=== PATIENT | female | born 1985 | race Caucasian/White ===

== ENCOUNTER 2016-10-04 19:10 | Emergency (ER) | payer MEDICAID ==
[~2016-10-04] VITALS: Ht 172.7 cm; Wt 100.2 kg
[~2016-10-04 19:10] MED LIST: GLYBURIDE5 M1 PO; METFORMIN HCL500 MG PO
[2016-10-04 19:31] VITALS: BP 112/76
--- NOTE | 2016-10-04 21:01 | NUR ---
C/O PAIN ON LEFT SIDE OF MOUTH -ABSCESS X 1 MONTH WHERE WISDOM TOOTH IS CRACKED. THEN RT LOWER EYE LID ON SMALL GROWTH ON IT OF 3 DAYS AGO. MED HX: DIABETES
--- NOTE | 2016-10-04 21:01 | NUR ---
TO ER BED 6
[2016-10-04 22:14] VITALS: BP 114/79
--- NOTE | 2016-10-04 22:14 | NUR ---
Patient discharged with v/s stable. Written and verbal after care instructions given and explained. Patient alert, oriented and verbalized understanding of instructions. Ambulatory with steady gait. All questions addressed prior to discharge. ID band removed. Patient advised to follow up with PMD. Rx of BLEPH 10, AMOX 500MG, AND MOTRIN 800MG given. Patient educated on indication of medication including possible reaction and side effects. Opportunity to ask questions provided and answered.
== END 2016-10-04 22:14 | disposition home or self-care (01) ==
LOC: MED 19:10
DX: K04.7 Periapical abscess without sinus (principal); H00.012 Hordeolum externum right lower eyelid; E11.9 Type 2 diabetes mellitus without complications

== ENCOUNTER 2017-06-28 15:42 | Emergency (ER) | payer MEDICAID ==
[~2017-06-28] VITALS: Ht 170.2 cm; Wt 103.4 kg
[~2017-06-28 15:42] MED LIST changes: +GLYB5TAB14 PO; -GLYBURIDE5 M1 PO; +METF500T4 PO; -METFORMIN HCL500 MG PO
[2017-06-28 15:56] VITALS: BP 116/74
--- NOTE | 2017-06-28 16:52 | NUR ---
PATIENT PRESENTS TO ED WITH LEFT WRIST PAIN S/P FALL MONDAY, X3 DAYS AGO HX DM; DENIES N/V/D; SKIN IS PINK/WARM/DRY; AAOX4 WITH EVEN AND STEADY GAIT; LUNGS CLEAR BL; HR EVEN AND REGULAR; PT DENIES ANY FEVER, CP, SOB, OR COUGH AT THIS TIME; PATIENT STATES PAIN OF 6/10 AT THIS TIME; VSS; PATIENT POSITIONED FOR COMFORT; ER MD MADE AWARE OF PT STATUS.
[2017-06-28] MEDS ORDERED: IBUPROFEN 400 MG TAB PO ONE (18:10)
[2017-06-28 18:22] VITALS: BP 124/84
== END 2017-06-28 16:52 | disposition home or self-care (01) ==
LOC: MED 15:42
DX: S63.502A Unspecified sprain of left wrist, initial encounter (principal); E11.9 Type 2 diabetes mellitus without complications; W18.30XA Fall on same level, unspecified, initial encounter; Y93.89 Activity, other specified; Y92.89 Other specified places as the place of occurrence of the external cause; Y99.8 Other external cause status
CPT/HCPCS: 73110; 99284

== ENCOUNTER 2018-01-07 15:04 | Emergency (ER) | payer MEDICAID ==
[~2018-01-07] VITALS: Ht 167.6 cm; Wt 109.3 kg
[2018-01-07 15:30] VITALS: BP 100/70
[2018-01-07] MEDS ORDERED: traMADol 50 MG TAB PO ONE (16:30)
[2018-01-07] MEDS ORDERED: KETOROLAC 60 MG/2 ML VIAL IM ONE (16:30)
[2018-01-07 18:08] VITALS: BP 111/73
== END 2018-01-07 18:08 | disposition home or self-care (01) ==
LOC: MED 15:04
DX: S92.535A Nondisplaced fracture of distal phalanx of left lesser toe(s), initial encounter for closed fracture (principal); E11.9 Type 2 diabetes mellitus without complications; W18.30XA Fall on same level, unspecified, initial encounter; Y93.89 Activity, other specified; Y92.89 Other specified places as the place of occurrence of the external cause; Y99.8 Other external cause status
CPT/HCPCS: 73630; 81025; 96372; 99285; J1885; Q0092

== ENCOUNTER 2018-12-26 22:07 | Emergency (ER) | payer MEDICAID ==
[~2018-12-26] VITALS: Ht 170.2 cm; Wt 101.6 kg
[2018-12-26 22:12] VITALS: BP 123/84
--- NOTE | 2018-12-26 22:12 | NUR ---
TO BED # 12 AMBULATORY
--- NOTE | 2018-12-26 22:12 | NUR ---
32 Y/O FEMALE PRESENTS TO ED WITH C/O LEFT FOOT FIRST DIGIT TOE PAIN. 01/19. RED, EDEMA, THROBBING PAIN. STATES HAD A PEDICURE 8 DAYS AGO. TRIED TREATING INFECTION AT HOME WITH PEROXIDE OR SOAP AND WATER. TOE HAS NOT IMPROVED. PT STATATES UNABLE TO WEAR SHOES D/T PAIN. AFEBRILE WITH VSS. ER MD AWARE. CONTINUE TO MONITOR.
--- NOTE | 2018-12-26 23:04 | NUR ---
Dr. Amezcua examining patient.
[2018-12-26] MEDS ORDERED: HYDROcodone/APAP 5/325 MG 1 TAB TAB PO ONE (23:10)
[2018-12-26] MEDS ORDERED: BACITRACIN OINT 500 UNITS/GM PKT TP ONE (23:10)
[2018-12-26 23:35] VITALS: BP 123/84
--- NOTE | 2018-12-26 23:35 | NUR ---
Patient discharged with v/s stable. Written and verbal after care instructions given and explained. Patient alert, oriented and verbalized understanding of instructions. Ambulatory with steady gait. All questions addressed prior to discharge. ID band removed. Patient advised to follow up with PMD. Rx of NORCO, KEFLEX, AND NAPROSYN given. Patient educated on indication of medication including possible reaction and side effects. Opportunity to ask questions provided and answered.
== END 2018-12-26 23:35 | disposition home or self-care (01) ==
LOC: MED 22:07
DX: L03.032 Cellulitis of left toe (principal); E11.65 Type 2 diabetes mellitus with hyperglycemia; Z89.412 Acquired absence of left great toe
CPT/HCPCS: 82948; 99283

== ENCOUNTER 2018-12-30 03:18 | Emergency (ER) | payer MEDICAID ==
[~2018-12-30] VITALS: Ht 170.2 cm; Wt 98.0 kg
[2018-12-30 03:23] VITALS: BP 120/86
--- NOTE | 2018-12-30 03:45 | NUR ---
32 YO F BIB SELF PRESENTS TO ED C/O N/V X 2 HOURS. PT IS VOMITING AT BEDSIDE YELLOW FLUID. PT STATES "I THINK I HAVE ALCOHOL POISONING". PT ADMITS TO INGESTING 41 JELLO SHOTS MADE WITH VODKA. PT ALSO C/O 12/19 DIFFUSE ABDOMINAL PAIN. -- PT AWAKE, ALERT, INTOXICATED. SPEECH IS SLURRED. BEHAVIOR INAPPROPRIATE. -- SKIN PINK, WARM, DRY. BREATHING EVEN, UNLABORED. PMH-- DENIES RX-- DENIES
[2018-12-30] MEDS ORDERED: NACL 0.9% 1,000 ML IV ONE ×2 (03:50→05:05)
[2018-12-30] MEDS ORDERED: ONDANSETRON 4 MG/2 ML VIAL IVP ONE (04:00)
--- NOTE | 2018-12-30 04:15 | NUR ---
PROVIDED PT WITH URINE CUP FOR URINE. PT STATES SHE CANNOT URINATE AT THIS TIME. FLUIDS RUNNING.
[2018-12-30 04:28] LABS: BASOPHILS % (AUTO) 0.3 % (0.0-2.0); EOSINOPHILS % (AUTO) 0.2 % (0.0-4.0); HEMATOCRIT 43.9 % (36-48); HEMOGLOBIN 14.7 g/dL (12.0-16.0); LYMPHOCYTES # (AUTO) 1.3 K/uL (2.5-16.5); LYMPHOCYTES % (AUTO) 15.7 % (20.5-51.1); MEAN CORPUSCULAR HEMOGLOBIN 26 pg (27-31); MEAN CORPUSCULAR HGB CONC 34 g/dL (33-37); MEAN CORPUSCULAR VOLUME 77.1 fL (80-94); MONOCYTES # (AUTO) 0.3 K/uL (0.8-1.0); MONOCYTES % (AUTO) 3.7 % (1.7-9.3); NEUTROPHILS # (AUTO) 6.8 K/uL (1.8-7.7); NEUTROPHILS % (AUTO) 80.1 % (42.2-75.2); PLATELET COUNT (AUTO) 288 K/uL (140-450); RED BLOOD CELL COUNT(AUTO) 5.69 MIL/uL (4.20-5.40); WHITE BLOOD COUNT (AUTO) 8.4 K/uL (4.8-10.8)
[2018-12-30 04:46] LABS: ANION GAP 16.9 (8-16); CREATININE 0.6 mg/dL (0.6-1.3); POTASSIUM 3.9 mmol/L (3.5-5.1)
[2018-12-30 04:48] LABS: ALBUMIN 3.9 g/dL (3.4-5.0); TOTAL BILIRUBIN 1.1 mg/dL (0.0-1.0)
--- NOTE | 2018-12-30 05:00 | NUR ---
PT AWAKE, ALERT, RESTING. VSS. SKIN PINK, WARM, DRY. BREATHING EVEN, UNLABORED.
--- NOTE | 2018-12-30 05:18 | NUR ---
URINE SAMPLE COLLECTED.
[2018-12-30 05:42] LABS: APPEARANCE,URINE CLEAR (CLEAR); BILIRUBIN,URINE NEGATIVE (NEGATIVE); BLOOD, URINE NEGATIVE (NEGATIVE); COLOR,URINE YELLOW (YELLOW); LEUKOCYTE ESTERASE ,URINE NEGATIVE (NEGATIVE); NITRITE, URINE NEGATIVE (NEGATIVE); UGLUCOSE 3+ (NEGATIVE)
[2018-12-30 05:56] LABS: RBC,URINE 0-5 /HPF (0-5); YEAST,URINE Many /HPF (None Seen)
[2018-12-30] MEDS ORDERED: ALUMINUM HYD/MAG/SIMETHICONE 30 ML UDC PO ONE (06:15)
[2018-12-30] MEDS ORDERED: LIDOCAINE VISCOUS 2% 20 ML UDC PO ONE (06:15)
[2018-12-30] MEDS ORDERED: FAMOTIDINE 20 MG TAB PO ONE (06:15)
[2018-12-30] MEDS ORDERED: FLUCONAZOLE 100 MG TAB PO ONE (06:15)
--- NOTE | 2018-12-30 06:19 | NUR ---
DIFLUCAN AND MYLANTA NOT AVAILABLE IN [facility]. [employer] CALLED. AWAITING MEDICATION.
[2018-12-30] MEDS ORDERED: FLUCONAZOLE 100 MG TAB ONE (06:35)
[2018-12-30] MEDS ORDERED: ALUMINUM HYD/MAG/SIMETHICONE 30 ML UDC ONE (06:36)
[2018-12-30] MEDS ORDERED: KETOROLAC 15 MG/ML VIAL IVP ONE (06:45)
[2018-12-30] MEDS ORDERED: FAMOTIDINE 20 MG TAB PO SCH (07:00)
[2018-12-30] MEDS ORDERED: KETOROLAC 30 MG/ML VIAL IVP ONE (07:00)
[2018-12-30] MEDS ORDERED: ALUMINUM HYD/MAG/SIMETHICONE 30 ML UDC PO SCH (07:00)
[2018-12-30] MEDS ORDERED: FLUCONAZOLE 100 MG TAB PO SCH (07:00)
[2018-12-30] MEDS ORDERED: LIDOCAINE VISCOUS 2% 20 ML UDC PO SCH (07:00)
--- NOTE | 2018-12-30 07:00 | NUR ---
PT AWAKE, ALERT, TALKING ON THE PHONE. VSS. SKIN PINK, WARM, DRY. BREATHING EVEN, UNLABORED.
--- NOTE | 2018-12-30 07:05 | NUR ---
RECEIVED REPORT FROM [facility] FOR CONTINUATION OF CARE
[2018-12-30] MEDS ORDERED: KETOROLAC 30 MG/ML VIAL ONE (07:09)
--- NOTE | 2018-12-30 07:17 | NUR ---
REPORT GIVEN TO DANIEL Cavazos RN. TRANSFER OF CARE AT THIS TIME.
[2018-12-30 07:35] VITALS: BP 117/74
--- NOTE | 2018-12-30 07:38 | NUR ---
Patient discharged with v/s stable. Written and verbal after care instructions given and explained. Patient verbalized understanding. Ambulatory with steady gait. All questions addressed prior to discharge. Advised to follow up with PMD.
== END 2018-12-30 07:38 | disposition home or self-care (01) ==
LOC: MED 03:18
DX: K29.70 Gastritis, unspecified, without bleeding (principal); E11.9 Type 2 diabetes mellitus without complications
CPT/HCPCS: 36415; 80053; 81001; 81025; 82948; 83690; 85025; 87086; 96361; 96374; 96375; 99284; G0482; J1885; J2405; J7030

== ENCOUNTER 2019-02-22 18:48 | Emergency (ER) | payer MEDICAID, OTHER ==
[~2019-02-22] VITALS: Ht 170.2 cm; Wt 99.5 kg
[2019-02-22 18:58] VITALS: BP 116/65
[2019-02-22] MEDS ORDERED: NACL 0.9% 500 ML IV ONE (19:07)
--- NOTE | 2019-02-22 19:07 | NUR ---
PT AMBULATED TO ER BED 07
--- NOTE | 2019-02-22 19:15 | NUR ---
33Y FEMALE PRESENTED TO ED, C/O RT BREAST PAIN X1DAY NON-RADIATING, CONSTANT STINGING AND BURNING SENSATION 01/19. PT ALSO REPORTED FAINTING 2X LAST WEEK WITH EPISODES OF LOW BLOOD PRESSURE. PT REPORTS HX OF DM, FIBROMYALGIA AND NEUROPATHY AND HAS NOT BEEN TAKING ANY MEDICATIONS. PT REPORTS NAUSEA, DENIES VOMITING/FEVER/CHILLS. PT AAOX4, RR EVEN UNLABORED, GCS 15, EDMD MADE AWARE, WILL CONTINUE TO MONITOR CLOSELY, BED LOCKED IN LOWEST POSITION, SIDERAILS UPX1.
[2019-02-22 19:31] LABS: BASOPHILS # (AUTO) 0.1 K/uL (0.00-0.22); EOSINOPHILS # (AUTO) 0.1 K/uL (0-0.4); EOSINOPHILS % (AUTO) 0.8 % (0.0-4.0); HEMATOCRIT 43.1 % (36-48); HEMOGLOBIN 14.5 g/dL (12.0-16.0); LYMPHOCYTES # (AUTO) 2.3 K/uL (2.5-16.5); LYMPHOCYTES % (AUTO) 30.6 % (20.5-51.1); MEAN CORPUSCULAR HEMOGLOBIN 26 pg (27-31); MEAN CORPUSCULAR HGB CONC 34 g/dL (33-37); MEAN CORPUSCULAR VOLUME 77.6 fL (80-94); MONOCYTES # (AUTO) 0.4 K/uL (0.8-1.0); NEUTROPHILS # (AUTO) 4.8 K/uL (1.8-7.7); NEUTROPHILS % (AUTO) 62.6 % (42.2-75.2); PLATELET COUNT (AUTO) 314 K/uL (140-450); RED BLOOD CELL COUNT(AUTO) 5.55 MIL/uL (4.20-5.40); RED CELL DISTRIBUTION WIDTH 13.3 % (11.6-13.7); WHITE BLOOD COUNT (AUTO) 7.6 K/uL (4.8-10.8)
[2019-02-22 19:46] LABS: ANION GAP 17.8 (8-16); CARBON DIOXIDE 22.9 mmol/L (21-32); CHLORIDE 98 mmol/L (98-107); CREATININE 0.8 mg/dL (0.6-1.3); GFR ARICAN-AMERICAN 106 mL/min (>90); GLUCOSE 393 mg/dL (74-106); POTASSIUM 3.7 mmol/L (3.5-5.1); SODIUM SERUM 135 mmol/L (136-145); UREA NITROGEN, BLOOD 10 mg/dL (7-18)
[2019-02-22 19:51] LABS: ALBUMIN 3.8 g/dL (3.4-5.0); ASPARTATE AMINOTRANSFERASE 7 U/L (15-37); TOTAL BILIRUBIN 1.1 mg/dL (0.0-1.0)
[2019-02-22 20:02] LABS: ACETONE, SERUM NEGATIVE (NEGATIVE)
--- NOTE | 2019-02-22 21:25 | NUR ---
DR. MALAGON EXAMINING PATIENT AT THIS TIME.
[2019-02-22 21:44] VITALS: BP 110/64
--- NOTE | 2019-02-22 21:44 | NUR ---
DPatient discharged with v/s stable. Written and verbal after care instructions given and explained. Patient alert, oriented and verbalized understanding of instructions. Ambulatory with to car. All questions addressed prior to discharge. ID band removed. Patient advised to follow up with PMD. Rx of MOTRIN 800MG given. Patient educated on indication of medication including possible reaction and side effects. Opportunity to ask questions provided and answered.
== END 2019-02-22 21:44 | disposition home or self-care (01) ==
LOC: MED 18:48
DX: N64.4 Mastodynia (principal); E11.9 Type 2 diabetes mellitus without complications; Z90.49 Acquired absence of other specified parts of digestive tract
CPT/HCPCS: 36415; 76641; 80053; 82009; 85025; 99284; J7030; Q0092

== ENCOUNTER 2019-03-29 04:10 | Emergency (ER) | payer OTHER ==
[~2019-03-29] VITALS: Ht 170.2 cm; Wt 95.7 kg
[2019-03-29 04:15] VITALS: BP 124/70
[2019-03-29] MEDS ORDERED: METOCLOPRAMIDE 10 MG/2 ML INJ VIAL IVP ONE (06:00)
[2019-03-29] MEDS ORDERED: NACL 0.9% 1,000 ML IV ONE (06:00)
[2019-03-29 06:33] LABS: APPEARANCE,URINE HAZY (CLEAR); BILIRUBIN,URINE NEGATIVE (NEGATIVE); BLOOD, URINE 3+ (NEGATIVE); COLOR,URINE YELLOW (YELLOW); LEUKOCYTE ESTERASE ,URINE NEGATIVE (NEGATIVE); NITRITE, URINE NEGATIVE (NEGATIVE); UGLUCOSE 3+ (NEGATIVE)
[2019-03-29 07:09] LABS: RBC,URINE 11-20 (MOD) /HPF (0-5); WBC,URINE 0-5 /HPF (0-5)
[2019-03-29 07:24] LABS: BASOPHILS % (AUTO) 0.4 % (0.0-2.0); EOSINOPHILS % (AUTO) 0.4 % (0.0-4.0); HEMATOCRIT 36.8 % (36-48); HEMOGLOBIN 12.3 g/dL (12.0-16.0); LYMPHOCYTES % (AUTO) 33.5 % (20.5-51.1); MEAN CORPUSCULAR HEMOGLOBIN 26 pg (27-31); MEAN CORPUSCULAR HGB CONC 33 g/dL (33-37); MEAN CORPUSCULAR VOLUME 78.3 fL (80-94); MONOCYTES # (AUTO) 0.2 K/uL (0.8-1.0); NEUTROPHILS # (AUTO) 3.7 K/uL (1.8-7.7); NEUTROPHILS % (AUTO) 61.7 % (42.2-75.2); PLATELET COUNT (AUTO) 313 K/uL (140-450); RED CELL DISTRIBUTION WIDTH 13.1 % (11.6-13.7); WHITE BLOOD COUNT (AUTO) 5.9 K/uL (4.8-10.8)
[2019-03-29 07:26] LABS: ANION GAP 13.4 (8-16); CARBON DIOXIDE 25.3 mmol/L (21-32); CREATININE 0.5 mg/dL (0.6-1.3); POTASSIUM 3.7 mmol/L (3.5-5.1)
[2019-03-29] MEDS ORDERED: AZITHROMYCIN 250 MG TAB PO ONE (07:30)
[2019-03-29 07:32] LABS: ALBUMIN 3.4 g/dL (3.4-5.0)
[2019-03-29] MEDS ORDERED: cefTRIAXone 1,000 MG VIAL ONE (07:40)
[2019-03-29 09:50] VITALS: BP 105/71
[2019-04-02 06:07] LABS: CHLAMYDIA TRACHOMATIS AMP DNA Negative (Negative)
== END 2019-03-29 09:50 | disposition home or self-care (01) ==
LOC: MED 04:10
DX: R10.13 Epigastric pain (principal); R11.2 Nausea with vomiting, unspecified; N73.9 Female pelvic inflammatory disease, unspecified; K85.90 Acute pancreatitis without necrosis or infection, unspecified; E11.9 Type 2 diabetes mellitus without complications; Z20.2 Contact with and (suspected) exposure to infections with a predominantly sexual mode of transmission; Z90.49 Acquired absence of other specified parts of digestive tract
CPT/HCPCS: 36415; 74177; 80053; 81001; 81025; 82009; 83690; 84703; 85025; 96361; 96365; 96375; 99284; J0696; J2765; J7060; Q9967; 87491; J7030

== ENCOUNTER 2019-08-13 09:24 | Emergency (ER) | payer OTHER ==
[~2019-08-13] VITALS: Ht 170.2 cm; Wt 99.3 kg
[2019-08-13 09:29] VITALS: BP 117/74
--- NOTE | 2019-08-13 09:33 | NUR ---
urine cup handed to pt for sample
--- NOTE | 2019-08-13 11:21 | NUR ---
TO ED 03
--- NOTE | 2019-08-13 11:42 | NUR ---
c/o left elbow pain and left anterior chest wall pain 02/19 s/p mechanical fall yesterday----landed on left side. no abrasions noted---no swelling redness or deformities noted to left elbow. hx : dm. PATIENT POSITIONED FOR COMFORT; HOB ELEVATED; BEDRAILS UP X1; BED DOWN. ER MD MADE AWARE OF PT STATUS.
[2019-08-13] MEDS ORDERED: IBUPROFEN 800 MG TAB PO ONE (12:25)
[2019-08-13] MEDS ORDERED: traMADol 50 MG TAB PO ONE (12:25)
--- NOTE | 2019-08-13 13:56 | NUR ---
APPLIED LEFT SHOULDER SLING/SPLINT WITHOUT COMPLAINTS
--- NOTE | 2019-08-13 13:59 | NUR ---
Patient discharged with v/s stable. Written and verbal after care instructions given and explained. Patient alert, oriented and verbalized understanding of instructions. Ambulatory with steady gait. All questions addressed prior to discharge. ID band removed. Patient advised to follow up with PMD. Rx of TRAMADOL & KETOROLAC given. Patient educated on indication of medication including possible reaction and side effects. Opportunity to ask questions provided and answered.
[2019-08-13 14:00] VITALS: BP 112/79
== END 2019-08-13 13:59 | disposition home or self-care (01) ==
LOC: MED 09:24
DX: S50.02XA Contusion of left elbow, initial encounter (principal); S43.402A Unspecified sprain of left shoulder joint, initial encounter; M25.572 Pain in left ankle and joints of left foot; E11.9 Type 2 diabetes mellitus without complications; Z90.49 Acquired absence of other specified parts of digestive tract; W18.09XA Striking against other object with subsequent fall, initial encounter; Y93.89 Activity, other specified; Y92.89 Other specified places as the place of occurrence of the external cause; Y99.8 Other external cause status
CPT/HCPCS: 29105; 73030; 73080; 99284

== ENCOUNTER 2020-11-20 18:17 | Emergency (ER) | payer OTHER ==
[~2020-11-20] VITALS: Ht 170.2 cm; Wt 96.2 kg
[2020-11-20 18:23] VITALS: BP 118/79
--- NOTE | 2020-11-20 18:45 | NUR ---
34 Y/O FEMALE C/O CHEST PAIN AND INTERMITTENT NUMBNESS TO LEFT ARM x 3 DAYS. PAIN 8/10 DESCRIBED THROBBING/SORE NON-RADIATING ACCOMPANIED BY N/V. PT ALSO REPORTED NOTICING A LESION ON CHEST 2 WEEKS AGO. DENIES FEVER/CHILLS. VSS. HEART RATE NORMAL REGULAR RHYTHM. ERMD MADE AWARE OF PT STATUS. PMH: FIBROMYALGIA, DM 2 NKA
[2020-11-20] MEDS ORDERED: ONDA8TAB87 PO (18:47)
[2020-11-20] MEDS ORDERED: IBUP-2213 PO (18:47)
--- NOTE | 2020-11-20 19:20 | NUR ---
Patient discharged with v/s stable. Written and verbal after care instructions given and explained. Patient alert, oriented and verbalized understanding of instructions. Ambulatory with steady gait. All questions addressed prior to discharge. ID band removed. Patient advised to follow up with PMD. Rx of ONDANSETRON, IBUPROFEN given. Patient educated on indication of medication including possible reaction and side effects. Opportunity to ask questions provided and answered.
== END 2020-11-20 19:20 | disposition home or self-care (01) ==
LOC: MED 18:17
DX: R07.89 Other chest pain (principal); R11.2 Nausea with vomiting, unspecified; E11.9 Type 2 diabetes mellitus without complications
CPT/HCPCS: 99283